=== PATIENT | male | born 1975 | race African-American/Black ===

== ENCOUNTER 2017-09-05 15:53 | Emergency (ER) | payer MEDICAID ==
[2017-09-05] MEDS: Sodium Chloride 0.9% 10 ML Syringe FLUSH PRN ×2 (16:25→16:52)
--- NOTE | 2017-09-05 16:25 | EDM.PDOC ---
ED HPI GENERAL MEDICAL PROBLEM - General Chief Complaint: General Stated Complaint: HEMROID ISSUES Time Seen by Provider: 09/05/17 16:05 Source of Information: Reports: Patient, Family History Limitations: Reports: No Limitations - History of Present Illness INITIAL COMMENTS - FREE TEXT/NARRATIVE: Issac comes into [facility] ED with painful hemorrhoids over the past 6 mos, associated with bleeding, and unimproved with conservative measures. He was in [place] this week for surgical intervention, but procedures were not performed because of surgical delays. He is seeking relief and managment today. Case was discussed with Dr Haynes who will do a consult on his behalf. Hemorrhoids Pain Score (Numeric/FACES): 10 - Related Data Allergies Allergy/AdvReac Type Severity Reaction Status Date / Time ibuprofen Allergy Abdominal Verified 09/05/17 16:38 Pain Home Meds: Home Meds Docusate Sodium [Colace] 100 mg PO BID PRN 09/05/17 [History] oxyCODONE [Oxycodone HCl] 10 mg PO Q4HR PRN 09/05/17 [History] ED ROS GENERAL - Review of Systems Review Of Systems: ROS reveals no pertinent complaints other than HPI. ED EXAM, GENERAL - Physical Exam Exam: See Below Exam Limited By: Physical Impairment General Appearance: Alert, WD/WN, Moderate Distress Head: Normocephalic Neck: Normal Inspection, Supple Respiratory/Chest: Lungs Clear, Normal Breath Sounds Cardiovascular: Regular Rate, Rhythm GI/Abdominal: Normal Bowel Sounds, Soft, Non-Tender, No Organomegaly, No Distention, No Mass (Male) Exam: Normal Inspection Rectal (Males) Exam: Hemorrhoids Back Exam: Normal Inspection Extremities: Normal Inspection Neurological: Alert, Oriented, CN II-XII Intact, Normal Cognition, No Motor/ Sensory Deficits Psychiatric: Normal Affect, Anxious Skin Exam: Warm, Dry, Intact Lymphatic: No Adenopathy Course - Vital Signs Text/Narrative:: See consult per Dr Haynes. Last Recorded V/S: Last Vital Signs Temp 36.5 C 09/05/17 16:00 Pulse 86 09/05/17 16:00 Resp 16 09/05/17 16:00 BP 152/86 H 09/05/17 16:00 Pulse Ox 96 09/05/17 16:00 - Orders/Labs/Meds Orders: Active Orders 24 hr Category Date Time Status Sodium Chloride 0.9% [Saline Flush] Med 09/05/17 16:20 Active 10 ml FLUSH ASDIRECTED PRN Peripheral IV Insertion Adult [OM.PC] Routine Oth 09/05/17 16:20 Ordered Medication Orders Sodium Chloride (Saline Flush) 10 ml FLUSH ASDIRECTED PRN PRN Reason: Keep Vein Open Last Admin: 09/05/17 16:25 Dose: 10 ml Meds: Medications Generic Name Dose Route Start Last Admin Trade Name Freq PRN Reason Stop Dose Admin Sodium Chloride 10 ml 09/05/17 16:20 09/05/17 16:25 Saline Flush FLUSH 10 ml ASDIRECTED PRN Administration Keep Vein Open Discontinued Medications Generic Name Dose Route Start Last Admin Trade Name Freq PRN Reason Stop Dose Admin Hydromorphone HCl Confirm 09/05/17 16:42 Dilaudid Administered 09/05/17 16:43 Dose 2 mg .ROUTE .STK-MED ONE Midazolam HCl Confirm 09/05/17 16:42 Versed 1 Mg/Ml Administered 09/05/17 16:43 Dose 2 mg .ROUTE .STK-MED ONE Midazolam HCl Confirm 09/05/17 16:58 Versed 1 Mg/Ml Administered 09/05/17 16:59 Dose 2 mg .ROUTE .STK-MED ONE Ondansetron HCl 4 mg 09/05/17 17:42 09/05/17 17:44 Zofran Odt PO 09/05/17 17:43 4 mg ONETIME ONE Administration Departure - Departure Time of Disposition: 17:48 Disposition: Home, Self-Care 01 Condition: Fair Clinical Impression: Hemorrhoids that prolapse with straining and require manual replacement back inside anal canal - Discharge Information Referrals: PCP,None [Primary Care Provider] - Forms: ED Department Discharge Additional Instructions: Activity as tolerated. If hemorrhoids come out, gently push back into rectum using fingers with lubricating jelly. Lay on side afterwards, avoid sitting or standing for at least 30 minutes. Tylenol as needed for pain. Follow up Thursday at [facility]/[place] with Dr. Ortez for recheck. [facility] [phone]. - Problem List & Annotations (1) Hemorrhoids that prolapse with straining and require manual replacement back inside anal canal SNOMED Code(s): 356566531 Code(s): K64.2 - THIRD DEGREE HEMORRHOIDS Status: Acute Current Visit: Yes Annotation/Comment:: Follow up with Dr Haynes next week. - Problem List Review Problem List Initiated/Reviewed/Updated: Yes - My Orders Last 24 Hours: My Active Orders 09/05/17 16:20 Sodium Chloride 0.9% [Saline Flush] 10 ml FLUSH ASDIRECTED PRN Peripheral IV Insertion Adult [OM.PC] Routine - Assessment/Plan Last 24 Hours: My Active Orders 09/05/17 16:20 Sodium Chloride 0.9% [Saline Flush] 10 ml FLUSH ASDIRECTED PRN Peripheral IV Insertion Adult [OM.PC] Routine Plan: Follow up with Dr Haynes.
[2017-09-05] MEDS ORDERED: Midazolam 1 MG/ML 2 ML SDV ONE ×2 (16:42→16:58)
[2017-09-05] MEDS ORDERED: HYDROmorphone 2 MG/ML SDV ONE (16:42)
[2017-09-05] MEDS ORDERED: Midazolam 1 MG/ML 2 ML SDV IVPUSH ONE (16:50)
[2017-09-05] MEDS ORDERED: HYDROmorphone 2 MG/ML SDV IVPUSH ONE (16:52)
[2017-09-05] MEDS ORDERED: Ondansetron 4 MG Tab.DIS PO ONE (17:42)
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
== END 2017-09-05 18:18 | disposition home or self-care (01) ==
LOC: FB.ED 15:53
DX: K64.8 Other hemorrhoids (principal)
CPT/HCPCS: 96374; 96375; 99282; A9270; J1170; J2250; J7050

== ENCOUNTER 2018-06-15 19:46 | Emergency (ER) | payer MEDICAID ==
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
== END 2018-06-15 21:04 | disposition home or self-care (01) ==
LOC: FB.ED 19:46
DX: M54.2 Cervicalgia (principal); F17.210 Nicotine dependence, cigarettes, uncomplicated; Z88.6 Allergy status to analgesic agent
CPT/HCPCS: 99283

== ENCOUNTER 2018-07-16 13:04 | Emergency (ER) | payer MEDICAID ==
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
== END 2018-07-16 17:07 | disposition home or self-care (01) ==
LOC: FB.ED 13:04
DX: M79.671 Pain in right foot (principal); R60.0 Localized edema; R82.998 Other abnormal findings in urine; Z88.6 Allergy status to analgesic agent
CPT/HCPCS: 36415; 73721-RT; 80048; 84550; 85025; 99284-25

== ENCOUNTER 2018-08-16 22:00 | Emergency (ER) | payer MEDICAID ==
[2018-08-16] MEDS ORDERED: Sulfamethoxazole/Trimethoprim 800-160 MG Tab PO ONE (22:01)
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
== END 2018-08-16 22:35 | disposition home or self-care (01) ==
LOC: FB.ED 22:00
DX: B07.0 Plantar wart (principal); M19.90 Unspecified osteoarthritis, unspecified site; Z79.899 Other long term (current) drug therapy; Z88.6 Allergy status to analgesic agent
CPT/HCPCS: 99282; A9270

== ENCOUNTER 2018-08-20 16:48 | Emergency (ER) | payer MEDICAID ==
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
[2018-08-20] MEDS ORDERED: Sodium Chloride 0.9% 1,000 ML IV ONE (16:58)
[2018-08-20] MEDS ORDERED: Ondansetron 4 MG/2 ML SDV IVPUSH ONE (16:58)
[2018-08-20] MEDS ORDERED: diphenhydrAMINE 50 MG/ML SDV IVPUSH ONE ×2 (16:59→18:15)
[2018-08-20] MEDS ORDERED: Iopamidol 755 Mg/ML 75 ML Bottle IV ONE (17:58)
[2018-08-20] MEDS ORDERED: Alum Hydroxide/Mag Hydroxide 15 ML, Lidocaine 2% 15 ML PO ONE ×2 (19:51)
== END 2018-08-20 20:13 | disposition home or self-care (01) ==
LOC: FB.ED 16:48
DX: K21.9 Gastro-esophageal reflux disease without esophagitis (principal); K52.9 Noninfective gastroenteritis and colitis, unspecified; R82.5 Elevated urine levels of drugs, medicaments and biological substances; Z79.899 Other long term (current) drug therapy; Z88.6 Allergy status to analgesic agent
CPT/HCPCS: 36415; 71045; 71275; 80048; 80305; 81001; 83605; 84484; 85025; 85379; 85610; 93005; 96361; 96374; 96375; 96376; 99285; A9270; G0480; J1200; J2405; J7030; Q9967

== ENCOUNTER 2019-09-15 04:08 | Emergency (ER) | payer MEDICAID ==
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
[2019-09-15] MEDS ORDERED: Ketorolac 60 MG/2 ML SDV IM ONE (04:59)
[2019-09-15] MEDS ORDERED: Cyclobenzaprine 10 MG Tab PO ONE (05:14)
[2019-09-15] MEDS ORDERED: Acetaminophen/HYDROcodone 325-5 MG Tab PO STA (05:28)
== END 2019-09-15 05:36 | disposition home or self-care (01) ==
LOC: FB.ED 04:08
DX: S31.139A Puncture wound of abdominal wall without foreign body, unspecified quadrant without penetration into peritoneal cavity, initial encounter (principal); K21.9 Gastro-esophageal reflux disease without esophagitis; E78.00 Pure hypercholesterolemia, unspecified; I10 Essential (primary) hypertension; I25.2 Old myocardial infarction; M19.90 Unspecified osteoarthritis, unspecified site; F17.210 Nicotine dependence, cigarettes, uncomplicated; Z79.82 Long term (current) use of aspirin; Z79.02 Long term (current) use of antithrombotics/antiplatelets; Z79.899 Other long term (current) drug therapy; Z88.6 Allergy status to analgesic agent; X58.XXXA Exposure to other specified factors, initial encounter
CPT/HCPCS: 96372; 99283; A9270; J1885

== ENCOUNTER 2019-11-21 10:34 | Emergency (ER) | payer OTHER, MEDICAID ==
[2019-11-21] MEDS ORDERED: Aspirin 81 MG Tab.Chew PO ONE (10:52)
[2019-11-21] MEDS ORDERED: Nitroglycerin 0.4 MG Tab.SL SL PRN (10:52)
[2019-11-21] MEDS ORDERED: Morphine 2 MG/ML SYRINGE IVPUSH STA ×2 (11:08→11:44)
[2019-11-21] MEDS ORDERED: Ondansetron 4 MG/2 ML SDV IVPUSH ONE (11:10)
[2019-11-21] MEDS ORDERED: Sodium Chloride 0.9% 1,000 ML IV SCH ×2 (11:15→14:45)
[2019-11-21] MEDS: Sodium Chloride 0.9% 10 ML Syringe FLUSH PRN ×2 (11:15→11:55)
[2019-11-21] MEDS ORDERED: Heparin Sodium 5,000 Units/ML Vial IVPUSH ONE (11:45)
[2019-11-21] MEDS ORDERED: Heparin Sodium/0.45% NaCl 500 ML IV SCH (11:46)
[2019-11-21] MEDS ORDERED: Nitroglycerin/D5W 25 MG/250 ML BOTTLE IV SCH (12:00)
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
--- NOTE | 2019-11-22 07:55 | CR ---
INDICATION: Chest pain. CHEST ONE VIEW: An AP upright portable view of the chest was obtained 11/21/19 and compared with 08/20/18. Heart size remains normal, the aorta is only minimally tortuous. Overlying snaps and EKG leads are noted. Pulmonary markings are somewhat similar to the previous study without a definite active infiltrate or effusion. IMPRESSION: No acute process. MTDD
== END 2019-11-21 14:15 ==
LOC: FB.ED 10:34
DX: I24.9 Acute ischemic heart disease, unspecified (principal); I10 Essential (primary) hypertension; I25.2 Old myocardial infarction; M19.90 Unspecified osteoarthritis, unspecified site; E78.00 Pure hypercholesterolemia, unspecified; K21.9 Gastro-esophageal reflux disease without esophagitis; Z88.6 Allergy status to analgesic agent; Z79.82 Long term (current) use of aspirin; Z95.5 Presence of coronary angioplasty implant and graft; Z79.899 Other long term (current) drug therapy; Z79.02 Long term (current) use of antithrombotics/antiplatelets
CPT/HCPCS: 36415; 71045; 80053; 83880; 84484; 85025; 85379; 85610; 85730; 93005; 96365; 96366; 96368; 96375; 96376; 99285; A9270; J1644; J2270; J2405; J3490; J7030

== ENCOUNTER 2020-01-13 06:46 | Emergency (ER) | payer MEDICAID ==
[2020-01-13] MEDS ORDERED: Lidocaine/Prilocaine 2.5-2.5% Crm 5 GM Tube TOP ONE (07:48)
[2020-01-13] MEDS ORDERED: HYDROmorphone 2 MG/ML SDV IM ONE (07:51)
[2020-01-13] MEDS ORDERED: Ondansetron 8 MG Tab.DIS PO ONE (07:52)
[2020-01-13] MEDS ORDERED: Lidocaine 2% HCl 6 ML JEL.PF.APP ONE (08:00)
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
== END 2020-01-13 08:35 | disposition home or self-care (01) ==
LOC: FB.ED 06:46
DX: R11.10 Vomiting, unspecified (principal); E78.00 Pure hypercholesterolemia, unspecified; I10 Essential (primary) hypertension; I25.2 Old myocardial infarction; K21.9 Gastro-esophageal reflux disease without esophagitis; M19.90 Unspecified osteoarthritis, unspecified site; Z90.49 Acquired absence of other specified parts of digestive tract; Z88.6 Allergy status to analgesic agent; Z79.82 Long term (current) use of aspirin; Z79.02 Long term (current) use of antithrombotics/antiplatelets; Z79.899 Other long term (current) drug therapy
CPT/HCPCS: 96372; 99283; A9270-GY; J1170

== ENCOUNTER 2020-01-17 10:03 | Emergency (ER) | payer MEDICAID ==
[2020-01-17] MEDS ORDERED: Sodium Chloride 0.9% 10 ML Syringe FLUSH PRN (11:23)
[2020-01-17] MEDS ORDERED: Sodium Chloride 0.9% 500 ML IV ONE (11:29)
[2020-01-17] MEDS ORDERED: Ondansetron 4 MG/2 ML SDV IVPUSH ONE (11:30)
[2020-01-17] MEDS ORDERED: HYDROmorphone 2 MG/ML SDV IVPUSH ONE ×2 (11:30→13:45)
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
[2020-01-17] MEDS ORDERED: Iopamidol 755 Mg/ML 100 ML Bottle IV ONE (12:02)
--- NOTE | 2020-01-18 08:23 | CT ---
INDICATION: Abdominal pain, lower pelvic last week. CT ABDOMEN AND PELVIS WITH CONTRAST: Spiral 3.75 mm axial sections were obtained through the abdomen and pelvis with 100 mL Isovue-370 at 2 mL per second with sagittal and coronal reconstructions 01/17/20 - no comparison CT abdomen and pelvis. Total exam DLP was 798.54 mGy-cm. Lower lung coleman and pleural spaces visualized appeared normal. The heart appeared normal in size. No pericardial effusion was seen. The liver, gallbladder, adrenals, kidneys, spleen, and pancreas appeared normal. Common bile duct was normal in caliber. No retroperitoneal mass was identified. Calcifications are noted in the abdominal aorta distally and in the iliac arteries. Retroperitoneal lymphadenopathy is mild and nonspecific. No retroperitoneal mass was seen. The appendix appears normal, visualized on coronal images 37 through 41, and axial images 82 through 89. No evidence of free air or a definite bowel obstruction was identified. There are numerous loops of small bowel with fluid and some minimal air-fluid levels, etiology indeterminate, but could be on the basis of gastroenteritis or possibly simply large fluid intake. No significant distention of the bowel loops was suggested. The bowel osorio do not appear grossly thickened. There appears to be some prominence of thickness of the rectal wall which may be on the basis of postsurgical change, but should be correlated clinically. Urinary bladder was unremarkable. Prostate did not appear grossly enlarged. There were some phleboliths in the pelvis. No organomegaly, mass lesions, or free fluid collections were identified in the abdomen or pelvis. No definite abscess formation was noted. There was noted fluid in the lumen of a portion of the rectosigmoid - rectum with somewhat rounded appearance of questionable significance and possibly related to adjacent contractions of the bowel. IMPRESSION: 1. Fluid filled loops of bowel including at the rectosigmoid - rectum of questionable etiology, may be related to fluid intake, there may be some thickening of the wall of the rectosigmoid and rectum, but the appearance is difficult to lime mixer since the bowel is not distended in that area. 2. ASD. 3. L5 is sacralized bilaterally. 4. Normal appearing appendix. Report was called to Dr. Lang at 1248 hours. [facility]
== END 2020-01-17 15:23 | disposition home or self-care (01) ==
LOC: FB.ED 10:03
DX: G89.18 Other acute postprocedural pain (principal); R10.30 Lower abdominal pain, unspecified; E78.00 Pure hypercholesterolemia, unspecified; I10 Essential (primary) hypertension; I25.2 Old myocardial infarction; K21.9 Gastro-esophageal reflux disease without esophagitis; M19.90 Unspecified osteoarthritis, unspecified site; Z79.82 Long term (current) use of aspirin; Z79.02 Long term (current) use of antithrombotics/antiplatelets; Z79.899 Other long term (current) drug therapy; Z88.6 Allergy status to analgesic agent
CPT/HCPCS: 36415; 74177; 80053; 81001; 85025; 96374; 96375; 96376; 99284-25; J1170; J2405; J7040; Q9967

== ENCOUNTER 2020-03-03 04:32 | Emergency (ER) | payer MEDICAID ==
[2020-03-03] MEDS ORDERED: Sodium Chloride 0.9% 10 ML Syringe FLUSH PRN (05:10)
[2020-03-03] MEDS ORDERED: Morphine 2 MG/ML SYRINGE IVPUSH ONE (05:10)
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
--- NOTE | 2020-03-05 11:32 | CR ---
INDICATION: Chest pain. CHEST, ONE VIEW: An AP upright view of the chest was obtained 03/03/20 and compared with 11/21/19 and 08/20/18 and revealed very little interval change with no acute process. The heart remains normal in size and shape. Overlying EKG leads are noted. An active infiltrate or effusion was not identified. IMPRESSION: Stable chest. No acute process. MTDD
== END 2020-03-03 06:00 | disposition home or self-care (01) ==
LOC: FB.ED 04:32
DX: R07.89 Other chest pain (principal); E78.00 Pure hypercholesterolemia, unspecified; I10 Essential (primary) hypertension; I25.2 Old myocardial infarction; J45.909 Unspecified asthma, uncomplicated; F17.210 Nicotine dependence, cigarettes, uncomplicated; M19.90 Unspecified osteoarthritis, unspecified site; Z79.82 Long term (current) use of aspirin; Z79.02 Long term (current) use of antithrombotics/antiplatelets; Z79.899 Other long term (current) drug therapy
CPT/HCPCS: 36415; 71045; 80053; 84484; 85025; 93005; 96374; 99282; 99285; J2270

== ENCOUNTER 2020-03-07 18:32 | Emergency (ER) | payer MEDICAID ==
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
[2020-03-07] MEDS ORDERED: Meperidine PF 50 MG/ML Syringe IM ONE (20:22)
--- NOTE | 2020-03-08 10:53 | CR ---
INDICATION: Injury - pain. RIGHT KNEE: Three views of the right knee revealed no evidence of an acute fracture, dislocation, or other significant bone or joint abnormality. If symptoms persist - if occult abnormality is suspected clinically, reexamination in 10-14 days, or possibly more advanced imaging such as MRI of the knee, may of further diagnostic benefit. MTDD
== END 2020-03-07 20:39 | disposition home or self-care (01) ==
LOC: FB.ED 18:32
DX: M25.561 Pain in right knee (principal); I10 Essential (primary) hypertension; E78.00 Pure hypercholesterolemia, unspecified; J45.909 Unspecified asthma, uncomplicated; I25.2 Old myocardial infarction; F17.210 Nicotine dependence, cigarettes, uncomplicated; Z88.6 Allergy status to analgesic agent; Z79.82 Long term (current) use of aspirin; Z79.02 Long term (current) use of antithrombotics/antiplatelets; Z79.01 Long term (current) use of anticoagulants; Z79.899 Other long term (current) drug therapy
CPT/HCPCS: 36415; 73562-RT; 80048; 85025; 85651; 86140; 96372; 99284-25; J2175

== ENCOUNTER 2020-05-30 11:23 | Emergency (ER) | payer MEDICAID, OTHER ==
[2020-05-30] MEDS ORDERED: Sodium Chloride 0.9% 10 ML Syringe FLUSH PRN (11:31)
[2020-05-30] MEDS ORDERED: Aspirin 81 MG Tab.Chew PO ONE (11:34)
[2020-05-30] MEDS ORDERED: Alum Hydroxide/Mag Hydroxide 15 ML, Lidocaine 2% 15 ML PO ONE ×2 (11:48)
[2020-05-30] MEDS ORDERED: Ketorolac 30 MG/ML SDV IVPUSH STA (11:48)
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
[2020-05-30] MEDS ORDERED: Acetaminophen/HYDROcodone 325-5 MG Tab PO STA (13:13)
--- NOTE | 2020-05-30 15:32 | CR ---
INDICATION: Chest pain. CHEST ONE VIEW: AP portable upright view of the chest 05/30/20 was compared with 03/03/20 and 11/21/19 revealing little interval change from the previous examinations with the heart and mediastinum unremarkable. There is a very minimal dextroconcave scoliosis at the upper middle thoracic spine. Overlying EKG leads are noted. An active infiltrate or effusion was not identified. No free air is noted under the hemidiaphragm leaves. IMPRESSION: Stable chest. No acute process. MTDD
== END 2020-05-30 13:45 ==
LOC: FB.ED 11:23
DX: K21.9 Gastro-esophageal reflux disease without esophagitis (principal); E78.00 Pure hypercholesterolemia, unspecified; I10 Essential (primary) hypertension; I25.2 Old myocardial infarction; J45.909 Unspecified asthma, uncomplicated; M19.90 Unspecified osteoarthritis, unspecified site; Z88.6 Allergy status to analgesic agent; Z79.82 Long term (current) use of aspirin; Z79.02 Long term (current) use of antithrombotics/antiplatelets; Z79.899 Other long term (current) drug therapy; Z95.5 Presence of coronary angioplasty implant and graft; Z87.891 Personal history of nicotine dependence
CPT/HCPCS: 36415; 71045; 80053; 84484; 85025; 85379; 93005; 96374; 99285; A9270; J1885

== ENCOUNTER 2021-03-13 09:06 | Emergency (ER) | payer MEDICAID, OTHER ==
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
[2021-03-13] MEDS ORDERED: Ondansetron 4 MG/2 ML SDV IVPUSH ONE (09:46)
[2021-03-13] MEDS ORDERED: Morphine 4 MG/ML VIAL IVPUSH ONE (09:46)
[2021-03-13] MEDS ORDERED: diphenhydrAMINE 50 MG/ML SDV IVPUSH ONE (09:54)
[2021-03-13] MEDS ORDERED: Acetaminophen 500 MG Tab PO ONE (12:05)
[2021-03-13] MEDS ORDERED: Lisinopril 5 MG Tab PO ONE (13:06)
[2021-03-13] MEDS ORDERED: Clopidogrel 75 MG Tab PO ONE (13:06)
[2021-03-13] MEDS ORDERED: Isosorbide Mononitrate 30 MG Tab.ER PO ONE (13:06)
[2021-03-13] MEDS ORDERED: Magnesium Oxide 400 MG Tab PO ONE (13:06)
[2021-03-13] MEDS ORDERED: Potassium Chloride 10 MEQ Tab.ER PO ONE (13:06)
[2021-03-13] MEDS ORDERED: Carvedilol 6.25 MG Tab PO ONE (13:06)
[2021-03-13] MEDS ORDERED: predniSONE 20 MG Tab PO ONE (13:09)
[2021-03-13] MEDS ORDERED: predniSONE 20 MG Tab ONE (13:18)
== END 2021-03-13 13:43 ==
LOC: FB.ED 09:06
DX: M94.0 Chondrocostal junction syndrome [Tietze] (principal); I25.10 Atherosclerotic heart disease of native coronary artery without angina pectoris; E78.00 Pure hypercholesterolemia, unspecified; I25.2 Old myocardial infarction; K21.9 Gastro-esophageal reflux disease without esophagitis; Z88.5 Allergy status to narcotic agent; Z88.8 Allergy status to other drugs, medicaments and biological substances; Z79.82 Long term (current) use of aspirin; Z79.02 Long term (current) use of antithrombotics/antiplatelets; Z79.899 Other long term (current) drug therapy; Z72.0 Tobacco use
CPT/HCPCS: 36415; 71045; 80053; 83735; 84484; 85025; 85379; 93005; 96374; 96375; 99285-25; A9270-GY; J1200; J2270; J2405; J7512